=== PATIENT | male | born 1955 | race Caucasian/White ===

== ENCOUNTER 2017-09-09 19:26 | Emergency (ER) | payer MEDICAID, OTHER ==
[2017-09-09] MEDS ORDERED: SOLU-Medrol 125 MG VIAL IVP ONE (19:40)
[2017-09-09] MEDS ORDERED: DUONEB 0.5 MG/3 MG NEB ONE (19:40)
[2017-09-09] MEDS ORDERED: SOLU-Medrol 125 MG VIAL ONE (19:41)
[2017-09-09] MEDS ORDERED: LASIX IVP ONE ×2 (19:44→19:49)
[2017-09-09 19:48] VITALS: BMI 33.9
--- NOTE | 2017-09-09 20:01 | DR.GENAD ---
HPI - PCP Primary Care Physician: nicki - HPI Comment HPI Comment: PATIENT WAS SICK AT HOME WITH RESPIRATORY DISTRESS WITHOUT BUT DID NOT WANT TO COME TO HOSPITAL PROGRESSIVELY GOT WORSE AND CONFUSE. HER FAMILY CALL EMS AND CAME TO TO ED. - Complaint/Symptoms Chief Complaint Doctors Comments: INCREASING SOB FOR SEVERAL DAYS. Chief Complaint:: pt c/o sob pt is pale cool to the touch pt sounds wet - Nurses notes reviewed Nurses Notes Review: Yes - Source History Provided: Patient, EMS - Mode of Arrival Mode of Arrival: EMS - Timing Onset of Chief Complaint: 09/09/17 Came on: Suddenly - Duration Duration: Constant Duration: Days - Severity Severity: Moderate PMH - PMH Past Medical History: Yes Past Medical History: Angina, Anxiety, Arthritis, Asthma, COPD, Coronary Artery Disease, Depression, Dyslipidemia, GERD, Hypertension, Liver Disease, NE Past Surgical History: Yes Surgical History: CABG/Valve Surgery, Tonsillectomy, Other - Family History History of Family Medical Conditions: Yes Family Medical History: Diabetes Mellitus, NE, Coronary Artery Disease, Hypertension - Social History Do you use any recreational Drugs:: No Lives With: Family Lives Where: Home - infectious screening In the last 2 months have you had wt loss of >10#?: NO Have you had fever, night sweats or hemotysis?: No Have you traveled outside the country in the last 6 months?: No Isolation: Standard ROS - Review of Systems Constitutional: Weakness, Fatigue. negative: Chills, Fever Eyes: No Symptoms Reported. negative: Eye Pain, Tearing ENTM: negative: Ear Pain, Nose Discharge, Nose Congestion Respiratoy: Moist Cough, Short of Breath, Wheezing Cardiovascular: Chest Pain, Edema Gastrointestinal/Abdominal: negative: Constipation, Diarrhea, Nausea, Vomiting Genitourinary: negative: Hematuria Neurological: Headache, Weakness, Dizziness, Other (SLEEPY) Musculoskeletal: Back Pain, Muscle Pain Integumentary: Change in Color Hematologic/Lymphatic: Easy Bleeding, Easy Bruising Endocrine: Increased Thirst. negative: Flushing All Other Systems: Reviewed and Negative PE - Vital Signs Vitals: Temperature 98.1 F Pulse Rate [Left Brachial] 75 Pulse Rate 76 Respiratory Rate 24 Blood Pressure [Left Arm] 104/72 Blood Pressure [Right Arm] 117/59 Blood Pressure 105/59 O2 Sat by Pulse Oximetry 100 - General Limitations: No Limitations General Appearance: Other (SLEEPY BUT AROUSABLE) - Head Head Exam: Normal Inspection - Eyes Eye exam: PERRL - ENT ENT Exam: Normal External Ear Exam External Ear Exam: Normal External Inspection TM/Canal Exam: Bilateral Normal Nose Exam: Normal Nose Exam Mouth Exam: Normal Inspection Throat Exam: Normal Inspection - Neck Neck Exam: Trachea Midline - Chest Chest Inspection: Other (INCREASE RESPIRATORY EFFORT.) - Respiratory Respiratory Exam: Respiratory Distress Respiratory Exam: Bilateral Wheezing, Bilateral Rhonchi, Bilateral Crackles, Upper Wheezing, Upper Rhonchi, Lower Wheezing, Lower Rhonchi, Lower Crackles - Cardiovascular Cardiovascular Exam: Regular Rate, Normal Rhythm, Normal Heart Sounds - Abdominal Exam Abdominal Exam: Normal Bowel Sounds, Soft. negative: Tenderness - Extremities Extremities Exam: Edema - Back Back Exam: Paraspinal Tenderness - Neurologic Neurological Exam: Alert - Psychiatric Psychiatric Exam: Other (SLEEPY) - Skin Skin Exam: Erythema MDM - Additional Information Additional Information Obtained From: Family - Differential Diagnosis Differential Diagnosis: RESPIRATORY FAILURE, COPD EXACCERBATION, CHF, NE, PNEUMONIA, UTI Course - Treatment Treatment: SEE ORDERS. IV MEDS AND NEB TREATMENT. IV ROCEPHINE IN ED. PLACE ON BI-PAP, NO IMPROVEMENT IN RESPIRATORY FAILURE. INTUBATED IN ED AND PLACE ON VENT. SEE RESPIRATORY DEPARTMENT NOTE FOR DETAIL. - Consultation Consultation Comments: PATIENT ACCEPTED BY DR. GRANDE IN [facility] IN [place]. TRANSPORTED VIA [facility]. - Education/Counseling Education/Counseling: Patient, Family, Education Educated On: Treatment, Diagnosis, Needs for Follow Up ROR - Labs Reviewed Laboratory Results Reviewed?: Yes Result Diagrams: 09/09/17 20:20 09/09/17 20:20 Laboratory: WBC 9.9 X10^3/uL (3.6-10.0) 09/09/17 20:20 RBC 4.25 X10^6/uL (4.7-6.0) L 09/09/17 20:20 Hgb 13.4 g/dL (13.5-18.0) L 09/09/17 20:20 Hct 39.9 % (42.0-54.0) L 09/09/17 20:20 MCV 93.8 fL (80.0-100.0) 09/09/17 20:20 MCH 31.4 pg (27.0-34.0) 09/09/17 20:20 MCHC 33.5 g/dL (33.0-35.0) 09/09/17 20:20 RDW 14.4 % (11.6-16.5) 09/09/17 20:20 Plt Count 187 X10^3/uL (150.0-450.0) 09/09/17 20:20 MPV 8.2 fL (7.4-11.0) 09/09/17 20:20 Neut % 86.9 % (42.0-75.0) H 09/09/17 20:20 Lymph % 8.2 % (21.0-51.0) L 09/09/17 20:20 Rapides % 4.7 % (0.0-13.0) 09/09/17 20:20 Eos % 0.1 % (0.9-2.9) L 09/09/17 20:20 Baso % 0.1 % (0.2-1.0) L 09/09/17 20:20 Neut # 8.6 x10^3/uL (2.2-4.8) H 09/09/17 20:20 Lymph # 0.8 X10^3/uL (1.3-2.9) L 09/09/17 20:20 Rapides # 0.5 x10^3/uL (0.3-0.8) 09/09/17 20:20 Eos # 0.0 x10^3/uL (0.0-0.2) 09/09/17 20:20 Baso # 0.0 X10^3/uL (0.0-0.1) 09/09/17 20:20 Absolute Nucleated RBC 0.0 /100WBC 09/09/17 20:20 Sample Site Left radial 09/09/17 23:30 ABG pH 7.140 (7.35-7.45) L* 09/09/17 23:30 ABG pCO2 115.0 mmHg (35.0-45.0) H* 09/09/17 23:30 ABG pO2 263.0 mmHg (80.0-100.0) H 09/09/17 23:30 Tarik Test Pos 09/09/17 23:30 FiO2 100.000 09/09/17 23:30 Blood Gas Comments Bharath well jts 09/09/17 23:30 Sodium 144 mmol/L (136-145) 09/09/17 20:20 Corrected Sodium 146 mmol/L (136-145) H 09/09/17 20:20 Potassium 5.1 mmol/L (3.5-5.1) 09/09/17 20:20 Chloride 100 mmol/L (98-107) 09/09/17 20:20 Carbon Dioxide 36.0 mmol/L (21-32) H 09/09/17 20:20 BUN 34 mg/dL (7-18) H 09/09/17 20:20 Creatinine 1.17 mg/dL (0.70-1.30) 09/09/17 20:20 Est GFR (MDRD) Af Amer > 60 (>60) 09/09/17 20:20 Est GFR (MDRD) Non-Af > 60 (>60) 09/09/17 20:20 Glucose 163 mg/dL (65-99) H 09/09/17 20:20 Lactic Acid 0.9 mmol/L (0.4-2.0) 09/09/17 20:20 Calcium 9.0 mg/dL (8.5-10.1) 09/09/17 20:20 Corrected Calcium TNP 09/09/17 20:20 Total Bilirubin 0.40 mg/dL (0.2-1.0) 09/09/17 20:20 AST 34 Units/L (15-37) 09/09/17 20:20 ALT 31 Units/L (12-78) 09/09/17 20:20 Alkaline Phosphatase 66 Units/L (46-116) 09/09/17 20:20 Creatine Kinase 162 Units/L (39-308) 09/09/17 23:15 CK-MB (CK-2) 3.6 ng/mL (0-4.0) 09/09/17 23:15 CK/CKMB % Calc 2.2 % (<4) 09/09/17 23:15 Troponin I 0.94 ng/mL (0-1.5) 09/09/17 23:15 C-Reactive Protein 102.90 mg/L (0-3.0) H 09/09/17 20:20 B-Natriuretic Peptide 504 pg/mL (0-79) H* 09/09/17 23:15 Total Protein 7.0 g/dL (6.4-8.2) 09/09/17 20:20 Albumin 3.7 g/dL (3.4-5.0) 09/09/17 20:20 Globulin 3.3 g/dL (2.5-4.5) 09/09/17 20:20 Albumin/Globulin Ratio 1.1 Ratio (1.1-2.1) 09/09/17 20:20 Specimen Type Catherized urine 09/09/17 20:04 Urine Color Yellow (YELLOW) 09/09/17 20: Urine Appearance Clear (CLEAR) 09/09/17 20: Urine pH 5.0 (5.0 - 8.0) 09/09/17 20:04 Ur Specific Robbins 1.020 (1.000-1.030) 09/09/17 20: Urine Protein 2+ (NEGATIVE) 09/09/17 20:04 Urine Glucose (UA) Negative (NEGATIVE) 09/09/17 20: Urine Ketones Negative (NEGATIVE) 09/09/17 20: Urine Occult Blood 2+ (NEGATIVE) 09/09/17 20: Urine Nitrite Negative (NEGATIVE) 09/09/17 20: Urine Bilirubin Negative (NEGATIVE) 09/09/17 20:04 Urine Urobilinogen Normal (NORMAL) 09/09/17 20:04 Ur Leukocyte Esterase Negative (NEGATIVE) 09/09/17 20:04 Urine RBC 0 - 3 /HPF (NEGATIVE) 09/09/17 20:04 Urine WBC Rare /HPF (NEGATIVE) 09/09/17 20:04 Ur Squamous Epith Cells Rare /HPF (NEGATIVE) 09/09/17 20:04 Urine Bacteria Negative /HPF (NEGATIVE) 09/09/17 20:04 Hyaline Casts Few /LPF (NEGATIVE) 09/09/17 20:04 Ur Culture Indicated? No/not indicated 09/09/17 20:04 - XRAY XRAY Interpreted by: Radiologist XRAY Findings: REPORT DISCUSS WITH PATIENTS FAMILY. - EKG Rhythm: NSR (EKG NOTED.) Procedures - Intubation Time of Intubation: :15 (ET TUBE PLACE BY RESP.) Intubation Method: orotracheal Tube Size (cm): 7.5 Medications: Succinylcholine, Versed Breath Sounds after Intubation: equal Intubation Complications: no complications Post Intubation Xray: Yes (ET TUBE AT LEWIS) - Diagnosis Discharge Problem: COPD exacerbation, Abnormal cardiac enzyme level Respiratory failure Qualifiers: Chronicity: acute on chronic Respiratory failure complication: hypercapnia Qualified Code(s): J96.22 - Acute and chronic respiratory failure with hypercapnia CHF (congestive heart failure) Qualifiers: Congestive heart failure type: combined Congestive heart failure chronicity: acute on chronic Qualified Code(s): I50.43 - Acute on chronic combined systolic (congestive) and diastolic (congestive) heart failure - Discharge Plan Disposition: [address] [place] [address] OTHER Condition: Stable - Follow ups/Referrals Follow ups/Referrals: Jeffy Obrien [STAFF PHYSICIAN] - 3 days - Instructions
[2017-09-09 20:17] LABS: BILIRUBIN,URINE NEGATIVE (NEGATIVE); BLOOD/HEMOGLOBIN,URINE 2+ (NEGATIVE); GLUCOSE, URINE NEGATIVE (NEGATIVE); KETONES,URINE NEGATIVE (NEGATIVE); LEUKOCYTE ESTERASE ,URINE NEGATIVE (NEGATIVE); NITRITES,URINE NEGATIVE (NEGATIVE); PROTEIN,URINE 2+ (NEGATIVE); UROBILINOGEN,URINE NORMAL (NORMAL)
[2017-09-09 20:19] LABS: APPEARANCE,URINE CLEAR (CLEAR); COLOR,URINE YELLOW (YELLOW)
[2017-09-09 20:24] LABS: BACTERIA,URINE NEGATIVE /HPF (NEGATIVE); HYALINE CASTS, URINE FEW /LPF (NEGATIVE); RBC,URINE 0 - 3 /HPF (NEGATIVE); SQUAMOUS EPITHELIAL CELL,UR RARE /HPF (NEGATIVE)
[2017-09-09 20:30] LABS: ABG ALLEN TEST POS
[2017-09-09 20:41] LABS: BASOPHILS % (AUTO) 0.1 % (0.2-1.0); EOSINOPHILS % (AUTO) 0.1 % (0.9-2.9); HEMATOCRIT 39.9 % (42.0-54.0); HEMOGLOBIN 13.4 g/dL (13.5-18.0); LYMPHOCYTES # (AUTO) 0.8 X10^3/uL (1.3-2.9); LYMPHOCYTES % (AUTO) 8.2 % (21.0-51.0); MEAN CORPUSCULAR HEMOGLOBIN 31.4 pg (27.0-34.0); MEAN CORPUSCULAR HGB CONC 33.5 g/dL (33.0-35.0); MEAN CORPUSCULAR VOLUME 93.8 fL (80.0-100.0); MEAN PLATELET VOLUME 8.2 fL (7.4-11.0); MONOCYTES # (AUTO) 0.5 x10^3/uL (0.3-0.8); MONOCYTES % (AUTO) 4.7 % (0.0-13.0); NEUTROPHILS # (AUTO) 8.6 x10^3/uL (2.2-4.8); NEUTROPHILS % (AUTO) 86.9 % (42.0-75.0); PLATELET COUNT 187 X10^3/uL (150.0-450.0); RED BLOOD COUNT 4.25 X10^6/uL (4.7-6.0); RED CELL DISTRIBUTION WIDTH 14.4 % (11.6-16.5); WHITE BLOOD COUNT 9.9 X10^3/uL (3.6-10.0)
--- NOTE | 2017-09-09 21:02 | RAD ---
Single-view chest series: Indication: Shortness of breath. Comparison: Chest series dated September 20, 2015. Technique: Single AP view of the chest obtained portably. Findings/impression: Again seen is multi focal scarring, now with superimposed bilateral basilar atel ectasis, greater on the left. No focal consolidation, pneumothorax, or pleural effusion is seen. The cardiac silhouette is within normal limits. Stable surgical change of CABG noted. No change in the le ft clavicle fracture, without acute skeletal abnormality. Reported By:
[2017-09-09 21:03] LABS: LACTIC ACID 0.9 mmol/L (0.4-2.0)
[2017-09-09 21:23] LABS: BLOOD UREA NITROGEN 34 mg/dL (7-18); CHLORIDE 100 mmol/L (98-107); COR NA(FOR HYPERGLY) 146 mmol/L (136-145); CREATININE 1.17 mg/dL (0.70-1.30); SODIUM 144 mmol/L (136-145); TROPONIN I 0.55 ng/mL (0-1.5); eGFR BLACK RACES > 60 (>60); eGFR NON BLACK RACES > 60 (>60)
[2017-09-09 21:29] LABS: ALANINE AMINOTRANSFERASE 31 Units/L (12-78); ALBUMIN 3.7 g/dL (3.4-5.0); ALKALINE PHOSPHATASE 66 Units/L (46-116); ASPARTATE AMINO TRANSFERASE 34 Units/L (15-37); CKMB % 1.8 % (<4); CREATINE KINASE 180 Units/L (39-308); CREATINE KINASE MB 3.2 ng/mL (0-4.0)
[2017-09-09 23:40] LABS: CKMB % 2.2 % (<4); CREATINE KINASE MB 3.6 ng/mL (0-4.0); TROPONIN I 0.94 ng/mL (0-1.5)
[2017-09-09 23:40] LABS: ABG ALLEN TEST POS
[2017-09-10] MEDS ORDERED: ROCEPHIN VIAL 1 GM 1 GM in NS 100 ML IV + SPIKE MINIBAG* 100 ML IV ONE (01:01)
[2017-09-10] MEDS ORDERED: QUELICIN (OR ANECTINE) ONE (01:03)
[2017-09-10] MEDS ORDERED: ROCEPHIN VIAL 1 GM ONE (01:04)
[2017-09-10] MEDS ORDERED: NS 1000 ML 0 ML ONE (01:04)
[2017-09-10] MEDS ORDERED: VERSED ONE (01:05)
[2017-09-10] MEDS ORDERED: VERSED IM ONE (01:21)
[2017-09-10] MEDS ORDERED: QUELICIN (OR ANECTINE) IVP ONE (01:22)
[2017-09-10] MEDS ORDERED: VERSED IVP ONE (01:23)
--- NOTE | 2017-09-10 01:41 | RAD ---
AP chest. Indication: Endotracheal tube placement Comparison: 09/09/2017 Findings: Endotracheal tube has been placed the tip is approximately 5.6 cm above the harriett, recomme nd advancement by additional 1 cm for optimal positioning. No pneumothorax. There is moderate emphyse ma and bullous disease most severely affecting the lung bases similar to prior radiographic evaluatio n. Scarring/atelectasis within both lung bases. There is also scarring noted within the left costophr enic sulcus. No pneumothorax. No acute osseous abnormality. Heart size is normal with previous median sternotomy. Impression: See above. Reported By:
[2017-09-10 01:52] VITALS: BP 104/72
== END 2017-09-10 01:50 | disposition short-term general hospital (02) ==
LOC: SUPCPDRO 19:26 → ER 19:47 → UNDOADMIN 22:48 → ICU 22:48 → ER 09-10 01:50
DX: J96.22 Acute and chronic respiratory failure with hypercapnia (principal); I50.43 Acute on chronic combined systolic (congestive) and diastolic (congestive) heart failure; J44.1 Chronic obstructive pulmonary disease with (acute) exacerbation; R74.8 Abnormal levels of other serum enzymes; R06.02 Shortness of breath
CPT/HCPCS: 31500; 36415; 36600; 51702; 71045; 80053; 81001; 82550; 82553; 82803; 83605; 83880; 84484; 85025; 86140; 87040; 93005; 93010; 96365; 96374; 96375; 99285; A4222; A4618; A7030; J0330; J0696; J1940; J2250; J2930; J7620

== ENCOUNTER → 2017-11-08 | Outpatient (CLI) | payer OTHER ==
--- NOTE | 2017-11-08 14:58 | RAD ---
Examination: Chest, PA and lateral views History: COPD Comparison 09/10/2017 Findings: Normal heart size with symmetric pulmonary hyperinflation. Stable linear fibrosis left mid lung. 2.0 cm nodular density right base. No hilar enlargement or pleural fluid. Sternal wires again n oted. Impression: 1. Pulmonary hyperexpansion consistent with COPD. 2. Possible nodular density now noted at right base. This may represent artifact or confluence of nor mal structures. However, a true lesion is not excluded; repeat PA and lateral views of chest recommen ded to exclude or confirm. Reported By:
== END ==
LOC: RAD 14:39
PROVIDERS: ATTEND Internal Medicine
DX: J44.9 Chronic obstructive pulmonary disease, unspecified (principal); J96.11 Chronic respiratory failure with hypoxia
CPT/HCPCS: 71046